=== PATIENT | female | born 1960 | race African-American/Black ===

== ENCOUNTER 2017-08-26 20:27 | Emergency (ER) | payer OTHER ==
[~2017-08-26 20:27] MED LIST: IBUP600T26 PO; METH750T2 PO
[2017-08-26 20:28] VITALS: BP 128/66; PULSE 100; RESP 18; TEMP 99.2; O2SAT 97
[2017-08-26] MEDS ORDERED: SODIUM CHLOR 0.9% 1000 ML INJ 1,000 ML IV SCH (22:13)
[2017-08-26] MEDS ORDERED: ALUMINUM/MAGNESIUM/SIMETH 30 ML CUP PO ONE (22:15)
[2017-08-26] MEDS ORDERED: LIDOCAINE VISCOUS 2% SOLN 15 ML UDC PO ONE (22:15)
[2017-08-26] MEDS ORDERED: SODIUM CHLORIDE 0.9% FLUSH 10 ML FLUSH IV FLUSH PRN (22:15)
[2017-08-26] MEDS ORDERED: DICYCLOMINE HCL 20 MG/2 ML VIAL IM ONE (22:15)
[2017-08-26] MEDS ORDERED: ONDANSETRON HCL 4 MG/2 ML VIAL IVP ONE (22:15)
[2017-08-26 23:07] LABS: ALBUMIN 3.6 GM/DL (3.4-5.0); ALT (GPT) 27 U/L (10-53); AST (GOT) 19 U/L (15-37); BICARBONATE 26.1 MEQ/L (21.0-32.0); BLOOD UREA NITROGEN 14 MG/DL (7-18); CALCIUM 8.9 MG/DL (8.5-10.1); CHLORIDE 103 MEQ/L (98-107); CREATININE 1.13 MG/DL (0.50-1.00); GLOMERULAR FILTRATION RATE 60 ML/MIN (>89); GLUCOSE,RANDOM 204 MG/DL (74-106); LIPASE 112 U/L (73-393); SODIUM (NA) 137 MEQ/L (136-145)
[2017-08-26 23:09] LABS: ALKALINE PHOSPHATASE 86 U/L (45-117); TOTAL BILIRUBIN ADULT 0.5 MG/DL (0.2-1.0); TOTAL PROTEIN 8.2 GM/DL (6.4-8.2)
[2017-08-26 23:13] LABS: AUTOMATED NEUTROPHIL # 13.1 TH/MM3 (1.8-7.7); BASOPHIL % 0.2 % (0.0-2.0); EOSINOPHIL % 0.1 % (0.0-4.0); HEMATOCRIT 38.8 % (35.0-46.0); HEMOGLOBIN 13.2 GM/DL (11.6-15.3); LYMPH % 7.5 % (9.0-44.0); LYMPHOCYTE # 1.1 TH/MM3 (1.0-4.8); MEAN CELL VOLUME 85.8 FL (80.0-100.0); MEAN CORPUSCULAR HEMOGLOBIN 29.2 PG (27.0-34.0); MEAN CORPUSCULAR HGB CONC 34.1 % (32.0-36.0); MEAN PLATELET VOLUME 9.2 FL (7.0-11.0); MONO % 7.2 % (0.0-8.0); MONOCYTE # 1.1 TH/MM3 (0-0.9); PLATELET COUNT 234 TH/MM3 (150-450); RED BLOOD COUNT 4.52 MIL/MM3 (4.00-5.30); RED CELL DISTRIBUTION WIDTH 14.4 % (11.6-17.2); WHITE BLOOD COUNT 15.4 TH/MM3 (4.0-11.0)
[2017-08-26] MEDS ORDERED: IOHEXOL 350 MG/ML 10 ML VIAL (for RAD DIAG) IVCONTRAST ONE (23:29)
--- NOTE | 2017-08-26 23:54 | RADRPT ---
EXAM DATE/TIME: 08/26/2017 23:27 [place] COMPARISON: No previous studies available for comparison. INDICATIONS : Right lower quadrant abdomen pain. IV CONTRAST: 100 cc Omnipaque 350 (iohexol) IV ORAL CONTRAST: No oral contrast ingested. RADIATION DOSE: 16.16 CTDIvol (mGy) MEDICAL HISTORY : None SURGICAL HISTORY : None. ENCOUNTER: Initial ACUITY: 1 week PAIN SCALE: 8/10 LOCATION: Right lower quadrant abdomen TECHNIQUE: Volumetric scanning of the abdomen and pelvis was performed. Using automated exposure control and ad justment of the mA and/or kV according to patient size, radiation dose was kept as low as reasonably achievable to obtain optimal diagnostic quality images. DICOM format image data is available electro nically for review and comparison. FINDINGS: LOWER LUNGS: The visualized lower lungs are clear. LIVER: Rounded areas of low density in the gallbladder neck indicating possible calculi. No pericholecystic inflammatory changes. Liver is within normal limits. SPLEEN: Normal size without lesion. PANCREAS: Within normal limits. KIDNEYS: 4.3 cm upper pole left renal cyst. Kidneys are otherwise within normal limits. ADRENAL GLANDS: Within normal limits. VASCULAR: There is no aortic aneurysm. BOWEL/MESENTERY: Large amount of stool in the rectum. Moderate amount of stool throughout the colon. Scattered colonic diverticula. No evidence of acute diverticulitis. Appendix is within normal limits. No evidence of s mall bowel dilatation. No free air or free fluid. ABDOMINAL WALL: Within normal limits. RETROPERITONEUM: There is no lymphadenopathy. BLADDER: No wall thickening or mass. REPRODUCTIVE: Markedly enlarged diffusely heterogeneous uterus with multiple masses indicating fibroids. The uterus measures 12.0 x 10.8 cm in axial dimensions. INGUINAL: There is no lymphadenopathy or hernia. MUSCULOSKELETAL: Prominent degenerative findings of the L5-S1 facet joints at the lumbosacral junction. Mild osteoarth ritic findings of the sacroiliac joints. CONCLUSION: 1. Appendix within normal limits. 2. Possible cholelithiasis. No pericholecystic inflammatory changes. 3. Large amount of stool in the rectum. Question constipation. 4. Fibroid uterus. 5. Prominent facet arthrosis at L5-S1. Chace Khan MD on August 26, 2017 at 23:40 Board Certified Radiologist. This report was verified electronically.
--- NOTE | 2017-08-27 | PD ---
HPI Chief Complaint: Abdominal Pain Time Seen by Provider: 22:02 Travel History International Travel<30 days: No Contact w/Intl Traveler<30days: No Traveled to known affect area: No History of Present Illness HPI 56 yo F Complains of 1 day of abdominal pain primarily on the right side. Constant. Severity is moderate. No fever. No diarrhea. No vaginal bleeding or discharge. No similar prior episodes. PFSH Past Medical History Blood Disorders: No Cancer: No Cardiovascular Problems: No Chemotherapy: No Endocrine: No Genitourinary: No Immune Disorder: No Musculoskeletal: No Neurologic: No Psychiatric: No Reproductive: No Respiratory: No Radiation Therapy: No ?: Not Tubal Ligation: Yes (1984) Past Surgical History AICD: No Arteriovenous Shunt: No Joint Replacement: No Pacemaker: No Social History Alcohol Use: No Tobacco Use: No Substance Use: No Allergies-Medications (Allergen,Severity, Reaction): Coded Allergies: No Known Allergies (Verified Allergy, Unknown, 08/26/17) Reported Meds & Prescriptions Reported Meds & Active Scripts Active Zofran Odt (Ondansetron Odt) 4 Mg Tab 4 Mg SL Q6HR PRN Percocet (Oxycodone-Acetaminophen) 5-325 mg Tab 1-2 Tab PO Q6H PRN Review of Systems Except as stated in HPI: all other systems reviewed are Neg Physical Exam Narrative GENERAL: SKIN: Warm and dry. HEAD: Atraumatic. Normocephalic. EYES: Pupils equal and round. No scleral icterus. No injection or drainage. ENT: No nasal bleeding or discharge. Mucous membranes pink and moist. NECK: Trachea midline. No JVD. CARDIOVASCULAR: Regular rate and rhythm. RESPIRATORY: No accessory muscle use. Clear to auscultation. Breath sounds equal bilaterally. GASTROINTESTINAL: TTP RUQ. Soft. MUSCULOSKELETAL: Extremities without clubbing, cyanosis, or edema. No obvious deformities. NEUROLOGICAL: Awake and alert. No obvious cranial nerve deficits. Motor grossly within normal limits. Five out of 5 muscle strength in the arms and legs. Normal speech. PSYCHIATRIC: Appropriate mood and affect; insight and judgment normal. Data Data Last Documented VS Vital Signs Date Time Temp Pulse Resp B/P (MAP) Pulse Ox O2 Delivery O2 Flow Rate FiO2 08/26/17 20:28 99.2 100 18 128/66 (86) 97 VS reviewed Orders Orders Complete Blood Count With Diff (08/26/17 22:13) Comprehensive Metabolic Panel (08/26/17 22:13) Lipase (08/26/17 22:13) Ct Abd/Pel W Iv Contrast(Rout) (08/26/17 22:13) Iv Access Insert/Monitor (08/26/17 22:13) Ecg Monitoring (08/26/17 22:13) Oximetry (08/26/17 22:13) Ondansetron Inj (Zofran Inj) (08/26/17 22:15) Sodium Chlor 0.9% 1000 Ml Inj (Ns 1000 M (08/26/17 22:13) Sodium Chloride 0.9% Flush (Ns Flush) (08/26/17 22:15) Dicyclomine Inj (Bentyl Inj) (08/26/17 22:15) Al-Mag Hy-Si 40-40-4 Mg/Ml Liq (Mag-Al P (08/26/17 22:15) Lidocaine 2% Viscous (Xylocaine 2% Visco (08/26/17 22:15) Iohexol 350 Inj (Omnipaque 350 Inj) (08/26/17 23:29) Ed Discharge Order (08/27/17 00:37) Labs Laboratory Tests Test 08/26/17 22:30 White Blood Count 15.4 TH/MM3 Red Blood Count 4.52 MIL/MM3 Hemoglobin 13.2 GM/DL Hematocrit 38.8 % Mean Corpuscular Volume 85.8 FL Mean Corpuscular Hemoglobin 29.2 PG Mean Corpuscular Hemoglobin Concent 34.1 % Red Cell Distribution Width 14.4 % Platelet Count 234 TH/MM3 Mean Platelet Volume 9.2 FL Neutrophils (%) (Auto) 85.0 % Lymphocytes (%) (Auto) 7.5 % Monocytes (%) (Auto) 7.2 % Eosinophils (%) (Auto) 0.1 % Basophils (%) (Auto) 0.2 % Neutrophils # (Auto) 13.1 TH/MM3 Lymphocytes # (Auto) 1.1 TH/MM3 Monocytes # (Auto) 1.1 TH/MM3 Eosinophils # (Auto) 0.0 TH/MM3 Basophils # (Auto) 0.0 TH/MM3 CBC Comment DIFF FINAL Differential Comment Blood Urea Nitrogen 14 MG/DL Creatinine 1.13 MG/DL Random Glucose 204 MG/DL Total Protein 8.2 GM/DL Albumin 3.6 GM/DL Calcium Level 8.9 MG/DL Alkaline Phosphatase 86 U/L Aspartate Amino Transf (AST/SGOT) 19 U/L Alanine Aminotransferase (ALT/SGPT) 27 U/L Total Bilirubin 0.5 MG/DL Sodium Level 137 MEQ/L Potassium Level 3.8 MEQ/L Chloride Level 103 MEQ/L Carbon Dioxide Level 26.1 MEQ/L Anion Gap 8 MEQ/L Estimat Glomerular Filtration Rate 60 ML/MIN Lipase 112 U/L [facility] Medical Decision Making Medical Screen Exam Complete: Yes Emergency Medical Condition: Yes Medical Record Reviewed: Yes Differential Diagnosis Gastritis, pancreatitis, appendicitis, acute cholecystitis, ascending cholangitis, AAA, perforated viscous, mesenteric ischemia, hepatitis, cystitis, hydronephrosis/hydroureter/nephroureter calculus, mesenteric adenitis, biliary colic Narrative Course CBC & BMP Diagram 08/26/17 22:30 Total Protein 8.2, Albumin 3.6, Calcium Level 8.9, Alkaline Phosphatase 86, Aspartate Amino Transf (AST/SGOT) 19, Alanine Aminotransferase (ALT/SGPT) 27, Total Bilirubin 0.5 Lipase normal Last Impressions Abdomen/Pelvis CT 08/26/173 Signed Impressions: Service Date/Time: Saturday, August 26, 2017 23:27 - CONCLUSION: 1. Appendix within normal limits. 2. Possible cholelithiasis. No pericholecystic inflammatory changes. 3. Large amount of stool in the rectum. Question constipation. 4. Fibroid uterus. 5. Prominent facet arthrosis at L5-S1. Chace Khan MD Gen surgery follow up with Dr Saha bottom finisher follow up with Dr Peter Pt agreeable with plan. Pt ready for discharge. Scripts as below. Diagnosis Primary Impression: Biliary colic Additional Impression: Uterine mass Referrals: Miroslava Peter MD 2 days Imer Cruz MD 2 days Med/Other Pt SpecificInfo: Prescription(s) given Scripts Ondansetron Odt (Zofran Odt) 4 Mg Tab 4 MG SL Q6HR Y for Nausea/Vomiting, #30 TAB 0 Refills Prov: Rishi Rao MD 08/27/17 Oxycodone-Acetaminophen (Percocet) 5-325 mg Tab 1-2 TAB PO Q6H Y for PAIN SCALE 6 TO 10, #15 TAB 0 Refills Prov: Rishi Rao MD 08/27/17 Disposition: 01 DISCHARGE HOME Condition: Stable Rishi Rao MD Aug 27, 2017 00:00
[2017-08-27] MEDS ORDERED: ZOFR4TAB3 SL (00:35)
[2017-08-27] MEDS ORDERED: PERC5TAB12 PO (00:35)
== END 2017-08-27 01:09 | disposition home or self-care (01) ==
LOC: NEPD 20:27
DX: K80.50 Calculus of bile duct without cholangitis or cholecystitis without obstruction (principal); D25.9 Leiomyoma of uterus, unspecified
CPT/HCPCS: 74177; 80053; 83690; 85025; 96361; 96372; 96374; 99285; J0500; J2405; J7030; Q9967